=== PATIENT | female | born 1930 | race Caucasian/White ===

== ENCOUNTER 2016-11-13 19:44 | Emergency (ER) | payer MEDICARE, OTHER ==
[~2016-11-13 19:44] MED LIST: ACET500CAP PO; ASAB PO; ATEN25 PO; BACTROINT TOP; CARDU4 PO; CELEBREX1 PO; CELEBREX2 PO; CENTRUM PO; CLARIT10 PO; CLINDA150 PO; FISH-EPA1000 MG PO; FLEX PO; HCTZ25B PO; HYDROCHLOROT25 MG PO; KLONO5 PO; KLOR-CON 1010 MEQ PO; LEVOTHYROXIN100 MCG PO; LEVOTHYROXIN137 MCG PO; LIOR10 PO; LIPITOR40 PO; LISINOPRIL40 MG PO; LOP25 PO; LORTAB; LORTAB 5 PO; MELATONIN1 M1 PO; MELATONIN5 M1 PO; MICRO-K10 MEQ PO; MS CONTIN PO; MULTIPLE VIT PO; MULTIVIT/MIN PO; MYCOSCROI TOP; NEUR300 PO; NEUR600 PO; NORV5 PO; NUEDEXTA 20-101 EACH PO; PERCOCET1 TA4 PO; PLAVIX PO; POT GLUCONAT550 M1 PO; PRIN10 PO; SALONPAS-HOT TOP; SEROQUEL25 PO; SYN1 PO; SYN125 PO; THYROID MED; TRAZ100 PO; TRAZ50 PO; ULTRACET PO; ULTRAM50 PO; V2 PO; VITAMIN C; ZESTORETIC1 TA1 PO; ZESTRIL40 MG PO; ZOCOR20 PO; ZOL100 PO
[2016-11-13 20:38] LABS: BASOPHILS 0.4 %; BASOPHILS ABSOLUTE 0.04 10/3/uL (0.0-0.16); EOSINOPHILS 4.5 %; EOSINOPHILS ABSOLUTE 0.42 10/3/uL (0.0-0.53); HEMATOCRIT 36.5 % (36.0-48.0); HEMOGLOBIN 11.7 g/dL (12.0-16.0); IMMATURE GRANULOCYTES 0.7 %; IMMATURE GRANULOCYTES ABSOLUTE 0.07 10/3/uL (0.0-0.11); LYMPHOCYTES 19.3 %; LYMPHOCYTES ABSOLUTE 1.82 10/3/uL (0.67-4.30); MANUAL DIFF NO %; MEAN CORPUS HGB CONC 32.1 g/dL (32.0-36.0); MEAN CORPUSCULAR HEMOGLOB 27.1 pg (26.0-34.0); MEAN CORPUSCULAR VOLUME 84.5 fL (80-100); MEAN PLATELET VOLUME 9.3 fL (9.2-13.0); MONOCYTES ABSOLUTE 0.47 10/3/uL (0.21-1.20); NEUTROPHILS 70.1 %; NEUTROPHILS ABSOLUTE 6.59 10/3/uL (2.02-8.40); PLATELET COUNT 465 10/3/uL (150-400); RBC DISTRIBUTION WIDTH 14.3 % (12.0-16.0); RED CELL COUNT 4.32 10/6/uL (4.0-5.6); WHITE BLOOD CELLS 9.4 10/3/uL (4.5-10.5)
[2016-11-13 20:46] LABS: INTERNATIONAL NORMAL RATI 1.1 UNITS (-); PARTIAL THROMBO TIME 30.3 SEC (22.5-37.2)
[2016-11-13 20:53] LABS: CHEST PAIN PROFILE TAT 0 Hrs 19 Mins; CHLORIDE, SERUM 107 MMOL/L (96-112); CO2 (CARBON DIOXIDE) 32 MMOL/L (24-34); CREATININE 1.75 MG/DL (0.55-1.02); GFR AFRICAN AMERICAN 31 ML/MIN (>=60); GFR NON AFRICAN AMERICAN 26 ML/MIN (>=60); GLUCOSE, SERUM 108 MG/DL (60-99); POTASSIUM, SERUM 4.1 MMOL/L (3.5-5.3); SODIUM, SERUM 144 MMOL/L (135-148); TROPONIN I <0.02 NG/ML (<0.05)
[2016-11-13 20:55] LABS: BUN (BLOOD UREA NITROGEN) 25 MG/DL (6-23); CALCIUM, SERUM 9.8 MG/DL (8.5-10.4)
[2016-11-13] MEDS ORDERED: LIPITOR40 PO (21:10)
[2016-11-13] MEDS ORDERED: ASAB PO (21:10)
[2016-11-13] MEDS ORDERED: V2 PO (21:10)
[2016-11-13] MEDS ORDERED: SYNTHROID137 MCG PO (21:11)
[2016-11-13] MEDS ORDERED: DSS PO (21:11)
[2016-11-13] MEDS ORDERED: CLARIT10 PO (21:11)
[2016-11-13] MEDS ORDERED: KDUR10 PO (21:12)
[2016-11-13] MEDS ORDERED: NUEDEXTA 20-101 EACH PO (21:12)
[2016-11-13] MEDS ORDERED: SEROQUEL50 MG PO (21:12)
[2016-11-13] MEDS ORDERED: ZOL100 PO (21:13)
[2016-11-13] MEDS ORDERED: SALONPAS-HOT TOP (21:13)
[2016-11-13] MEDS ORDERED: TRAZ50 PO (21:14)
[2016-11-13] MEDS ORDERED: LOP25 PO (21:15)
[2016-11-13] MEDS ORDERED: MOMUD PO (21:16)
[2016-11-13] MEDS ORDERED: BISR PR (21:16)
[2016-11-13] MEDS ORDERED: T PO (21:16)
[2016-11-13] MEDS ORDERED: MIRALAX POWDER1 PKT PO (21:16)
== END 2016-11-13 23:15 | disposition short-term general hospital (02) ==
LOC: ER 19:44
PROVIDERS: Nurse Practitioner
DX: S06.5X0A Traumatic subdural hemorrhage without loss of consciousness, initial encounter (principal); I12.9 Hypertensive chronic kidney disease with stage 1 through stage 4 chronic kidney disease, or unspecified chronic kidney disease; N18.9 Chronic kidney disease, unspecified; M25.551 Pain in right hip; M54.2 Cervicalgia; I25.10 Atherosclerotic heart disease of native coronary artery without angina pectoris; F03.90 Unspecified dementia, unspecified severity, without behavioral disturbance, psychotic disturbance, mood disturbance, and anxiety; E11.9 Type 2 diabetes mellitus without complications; Z98.61 Coronary angioplasty status; Z88.0 Allergy status to penicillin; Z88.2 Allergy status to sulfonamides; Z88.5 Allergy status to narcotic agent; Z88.8 Allergy status to other drugs, medicaments and biological substances; Z79.82 Long term (current) use of aspirin; Z79.899 Other long term (current) drug therapy; W18.30XA Fall on same level, unspecified, initial encounter
CPT/HCPCS: 36415; 70450; 71010; 72125; 72170; 73502-RT; 80048; 81001; 83735; 84484; 85025; 85610; 85730; 86850; 86900; 86901; 93005; 99291